=== PATIENT | male | born 1990 | race Caucasian/White ===

== ENCOUNTER 2025-01-09 06:37 | Emergency (ER) | payer MEDICAID ==
[~2025-01-09] VITALS: Ht 172.7 cm; Wt 68.4 kg
[2025-01-09 06:43] VITALS: BP 131/92; PULSE 18; RESP 16; TEMP 97.2; O2SAT 100
[2025-01-09 07:08] LABS: LEUKOCYTE ESTERASE ,URINE NEGATIVE (Neg); NITRITES, URINE NEGATIVE (Neg); OCCULT BLOOD,URINE NEGATIVE (Neg)
[2025-01-09 07:15] LABS: UA COLLECTION TYPE CLN CATCH MIDSTREAM
--- NOTE | 2025-01-09 07:21 | Physician Documentation ---
History of Present Illness ~ Chief Complaint: See Chief Complaint Stated Complaint: MULTIPLE COMPLAINTS Time Seen by MD: 07:20 Mode of Arrival: Ambulatory HPI 34-year-old male presenting with concern for a worm in his hair He tells me that he has had trouble with skin infections. He states that his belly button was infected and he has had multiple skin lesions recently. Somet imes my belly is really flabby but then it goes flat again. He tells me that this morning he thought maybe he had dandruff and when he looked closely at his hair there was a worm that came out. While I was talking with the patient, he became frustrated and got up and walked out of the room. He eloped from the emergency department. Tetanus within 5 years?: Yes Medication Reconciliation Allergies: Coded Allergies: No Known Allergies (Unverified , 01/09/25) Review of Systems Constitutional: Denies: fever Integumentary: Reports: lesions, wound(s) Physical Exam Vital Signs: Temperature: 97.2, Source: Oral, Heart Rate: 18, Respiratory Rate: 16, BP: 131/92, Pulse Oximetry: 100, Weight: 68.400 Oxygen Flow Rate: 0 Physical Exam General: This is a thin young man, with pressured speech and and intense gaze HEENT: I do not see any worms or lice in the hair or abnormal changes to the scalp Heart: Mild tachycardic, appears regular Lungs: normal work of breathing, normal oxygen saturation on room air Skin: The patient has several scars from what appeared to be past skin infections. No acute findings to suggest abscess or cellulitis Neuro: Alert and oriented Psychiatric: Pressured speech, intense gaze, appears to be fixated on seeing bugs under his skin and on his hair Progress Results/Orders Results/Orders Completed Orders - SUZY MIRELES MD Urinalysis, Cult If Indicated (01/09/25 06:52) Drug Screen, Urine (01/09/25 07:25) Vital Signs 01/09/25 01/09/25 06:43 07:06 Temp 97.2 Pulse 18 Resp 16 B/P (MAP) 131/92 Pulse Ox 100 O2 Flow Rate 0 Laboratory Tests Test 01/09/25 07:00 Urine Specimen Description Cln catch midstream Urine Color Yellow Urine Clarity Clear Urine pH 7.5 Urine Specific Magna 1.010 Urine Protein Negative Urine Glucose (UA) Negative Urine Ketones Negative Urine Occult Blood Negative Urine Nitrite Negative Urine Bilirubin Negative Urine Urobilinogen 1.0 Urine Leukocyte Esterase Negative Urine Culture Indicated Not ind Volume Urine Centrifuged 10 ml Urine Comment Urine Opiates Screen Negative Urine Methadone Screen Negative Urine Fentanyl Screen Negative Urine Barbiturates Screen Negative Urine Phencyclidine Screen Negative Urine Amphetamines Screen Positive Urine Benzodiazepines Screen Negative Urine Cocaine Screen Negative Urine Cannabinoids Screen Negative Drug Screen Comment Medical Decision Making Additional Comment The patient presents with concern for a worm in his hair and possibly bugs on his skin. On exam I do not see any evidence of infestation, lice, or other abnormality. He then became frustrated and eloped from the emergency department before I could evaluate him further. His drug screen is positive for amphetamines, which is the likely cause of his delusions. Departure Disposition: 07 LEFT AWOL/ELOPED Impression: Primary Impression: Methamphetamine abuse Referrals: NO PRIMARY CARE PROVIDER (PCP) Signature Scribe Signature: na Attestation: SUZY Robertson MD Jan 09, 2025 07:21
[2025-01-09 08:23] LABS: URINE AMPHETAMINE SCREEN POSITIVE (Neg); URINE BARBITUATE SCREEN NEGATIVE (Neg); URINE BENZODIAZEPINES SCREEN NEGATIVE (Neg); URINE CANNABINOID SCREEN NEGATIVE (Neg); URINE COCAINE SCREEN NEGATIVE (Neg); URINE METHADONE SCREEN NEGATIVE (Neg); URINE OPIATE SCREEN NEGATIVE (Neg); URINE PHENCYCLIDINE SCREEN NEGATIVE (Neg)
== END 2025-01-09 07:40 | disposition left against medical advice (07) ==
LOC: ER 06:38
DX: F15.10 Other stimulant abuse, uncomplicated (principal); Z79.899 Other long term (current) drug therapy
CPT/HCPCS: 80305; 81003; 99283